=== PATIENT | male | born 1985 | race Caucasian/White ===

== ENCOUNTER 2016-11-20 14:12 | Emergency (ER) | payer OTHER ==
[2016-11-20 14:28] VITALS: BP 158/93; PULSE 131; TEMP 99.2
[2016-11-20] MEDS ORDERED: SODIUM CHLORIDE 1,000 ML IV STA (14:53)
[2016-11-20 15:35] LABS: BASOPHIL 0.5 % (0-2.0); EOSINOPHIL 0.2 % (0-4.5); MCH 30.8 pg (25.7-33.7); MCHC 34.2 g/dl (32.0-35.9); MEAN CELL VOLUME 89.8 fl (80-96); MEAN PLT VOLUME 6.6 fl (7.5-11.1); NEUTROPHILS 62.5 % (42.8-82.8); PLATELET COUNT 157 K/MM3 (134-434); RDW 12.3 % (11.9-15.9); WHITE BLOOD COUNT 5.9 K/mm3 (4.0-10.0)
[2016-11-20 16:07] LABS: ALK PHOS 95 U/L (45-117); ANION GAP 10 (8-16); BILIRUBIN,TOTAL 0.5 mg/dL (0.2-1.0); CALCIUM 8.3 mg/dL (8.5-10.1); CO2 29 mmol/L (21-32); CREATININE 0.8 mg/dL (0.7-1.3); GLUCOSE,RANDOM 135 mg/dL (74-106); SGOT/AST 25 U/L (15-37); SGPT/ALT 29 U/L (12-78)
--- NOTE | 2016-11-20 17:22 | PDOC ---
History of Present Illness - General Chief Complaint: Alcohol intoxication Stated Complaint: DETOX Time Seen by Provider: 11/20/16 14:33 History Source: Patient Exam Limitations: No Limitations - History of Present Illness Initial Comments: 11/20/16 17:17 31-year-old male presents to the ED for alcohol intoxication. As per the girlfriend The patient has been drinking heavily for the past few days and is now requesting detox. Patient states long-standing history of broccoli abuse with denies drug use. Patient states has been in detox before at [facility]. Patient has no other complaints at this time. Timing/Duration: constant Associated Symptoms: reports: denies symptoms Past History - Travel Traveled outside of the country in the last 30 days: No - Past Medical History Allergies/Adverse Reactions: Allergies Allergy/AdvReac Type Severity Reaction Status Date / Time No Known Allergies Allergy Verified 10/23/15 20:58 Home Medications: Ambulatory Orders Cetirizine HCl [Zyrtec -] 5 mg PO DAILY 08/10/14 Divalproex [Depakote -] 0 mg PO DAILY 10/23/15 Trazodone HCl 300 mg PO HS 10/23/15 Hydroxyzine Pamoate [Vistaril -] 50 mg PO DAILY #30 capsule 02/05/16 Quetiapine Fumarate "Xr" [Seroquel Xr -] 150 mg PO HS #30 tab 02/05/16 Anemia: Yes (r/t gastric bypass) Asthma: No Cancer: No Cardiac Disorders: No CVA: No COPD: No CHF: No Dementia: No Diabetes: No GI Disorders: Yes (GERD) Disorders: No HTN: No Hypercholesterolemia: No Kidney Stones: No Liver Disease: No Suicide Attempt (Hx): No Seizures: No Thyroid Disease: No - Surgical History Abdominal Surgery: Yes (gastric bypass in 05/2012) Appendectomy: No Cardiac Surgery: No Cholecystectomy: No Lung Surgery: No Neurologic Surgery: No Orthopedic Surgery: No - Reproductive History Testicular Surgery: No - Immunization History Immunization Up to Date: Yes - Psycho/Social/Smoking Cessation Hx Anxiety: No Suicidal Ideation: No Smoking History: Unknown if ever smoked Have you smoked in the past 12 months: Yes Number of Cigarettes Smoked Daily: 5 Cigars Per Day: 0 Information on smoking cessation initiated: No 'Breaking Loose' booklet given: 02/04/16 Hx Alcohol Use: Yes (unknown) Drug/Substance Use Hx: (unknown) Substance Use Type: Alcohol Hx Substance Use Treatment: Yes Patient Lives Alone: No Lives with/in: spouse/SO Review of Systems - Review of Systems Able to Perform ROS?: Yes Constitutional: No: Symptoms Reported HEENTM: No: Symptoms Reported Respiratory: No: Symptoms reported Cardiac (ROS): No: Symptoms Reported ABD/GI: No: Symptoms Reported : No: Symptoms Reported Musculoskeletal: No: Symptoms Reported Integumentary: No: Symptoms Reported Neurological: No: Symptoms reported *Physical Exam - Vital Signs Last Vital Signs Temp Pulse Resp BP Pulse Ox 99.2 F 131 H 19 158/93 96 11/20/16 14:24 11/20/16 14:24 11/20/16 14:24 11/20/16 14:24 11/20/16 14:24 - Physical Exam General Appearance: Yes: Nourished, Appropriately Dressed, Intoxicated HEENT: positive: EOMI, SHELIA, TMs Normal, Pharynx Normal. negative: Pale Conjunctivae Neck: positive: Supple Respiratory/Chest: positive: Lungs Clear, Normal Breath Sounds. negative: Respiratory Distress, Accessory Muscle Use Cardiovascular: positive: Regular Rhythm, Tachycardia. negative: Murmur Gastrointestinal/Abdominal: positive: Soft. negative: Tenderness Extremity: positive: Normal Capillary Refill. negative: Pedal Edema Integumentary: positive: Normal Color, Warm, Moist Neurologic: positive: Motor Strength 5/5 (ambulatory) ED Treatment Course - LABORATORY CBC & Chemistry Diagram: 11/20/16 15:10 11/20/16 15:10 - ADDITIONAL ORDERS Additional order review: Laboratory Results 11/20/16 11/20/16 15:10 15:10 Sodium 146 H Potassium 3.4 L Chloride 107 Carbon Dioxide 29 Anion Gap 10 BUN 10 Creatinine 0.8 D Creat Clearance w eGFR > 60 Random Glucose 135 H D Calcium 8.3 L Total Bilirubin 0.5 D AST 25 ALT 29 D Alkaline Phosphatase 95 Total Protein 7.0 Albumin 4.0 Alcohol, Quantitative 344.2 H* 11/20/16 15:10 RBC 5.25 MCV 89.8 MCHC 34.2 RDW 12.3 D MPV 6.6 L D Neutrophils % 62.5 Lymphocytes % 29.1 Monocytes % 7.7 Eosinophils % 0.2 D Basophils % 0.5 - Medications Given in the ED: ED Medications Discontinued Medications Generic Name Dose Route Start Last Admin Trade Name Heather PRN Reason Stop Dose Admin Sodium Chloride 1,000 mls @ 1,000 mls/hr 11/20/16 14:53 11/20/16 15:29 Normal Saline - IV 11/20/16 15:52 1,000 mls/hr ASDIR STA Administration Medical Decision Making - Medical Decision Making 11/20/16 16:30 Pt here for etoh intoxication. Pt requesting detox. Pt currenly intoxicated. Labs, urine, and ivf ordered 11/20/16 17:31 Laboratory Tests 11/20/16 11/20/16 11/20/16 15:10 15:10 15:10 WBC 5.9 Hgb 16.1 Hct 47.2 Plt Count 157 D Neutrophils % 62.5 Sodium 146 H Potassium 3.4 L Chloride 107 Carbon Dioxide 29 Anion Gap 10 BUN 10 Creatinine 0.8 D Creat Clearance w eGFR > 60 Random Glucose 135 H D Calcium 8.3 L Total Bilirubin 0.5 D AST 25 ALT 29 D Alkaline Phosphatase 95 Total Protein 7.0 Albumin 4.0 Alcohol, Quantitative 344.2 H* 11/20/16 17:59 As per nurse's patient was unable to be located in the ED. Patient placed as eloped *DC/Admit/Observation/Transfer Diagnosis at time of Disposition: Alcohol intoxication Qualifiers: Complication of substance-induced condition: uncomplicated Qualified Code(s): F10.920 - Alcohol use, unspecified with intoxication, uncomplicated - Discharge Dispostion Disposition: ELOPED Condition at time of disposition: Unchanged/Unknown - Patient Instructions Printed Discharge Instructions: DI for Alcohol Abuse
== END 2016-11-20 18:00 | disposition left against medical advice (07) ==
LOC: JER 14:12
PROC: 3E0337Z Introduction of Electrolytic and Water Balance Substance into Peripheral Vein, Percutaneous Approach (ICD-10-PCS; principal; 2016-11-20)
DX: F10.920 Alcohol use, unspecified with intoxication, uncomplicated (principal)
CPT/HCPCS: 80053; 80307; 85025; 99281-25

== ENCOUNTER 2016-11-20 19:26 | Inpatient (IN) | payer OTHER ==
[2016-11-20 19:46] VITALS: BMI 24.4
--- NOTE | 2016-11-20 20:01 | HP ---
CIWA Score - CIWA Score Nausea/Vomitin-Mild Nausea/No Vomiting Muscle Tremors: 4-Moderate,w/Arms Extend Anxiety: 5 Agitation: 5 Paroxysmal Sweats: 1-Minimal Palms Moist Orientation: 1-Uncertain about Date Tacttile Disturbances: 0-None Auditory Disturbances: 0-None Visual Disturbances: 0-None Headache: 1-Very Mild CIWA-Ar Total Score: 18 Admission ROS BHS - HPI Chief Complaint: withdrawal sx Allergies/Adverse Reactions: Allergies Allergy/AdvReac Type Severity Reaction Status Date / Time No Known Allergies Allergy Verified 11/20/16 19:46 History of Present Illness: 31 years old male with long history of alcohol nicotine dependence denies medical issue has bipolar ii is admitted to detox Exam Limitations: No Limitations - Ebola screening Have you traveled outside of the country in the last 21 days: No Have you had contact with anyone from an Ebola affected area: No Have you been sick,other than usual withdrawal symptoms: No Do you have a fever: No - Review of Systems Constitutional: Changes in sleep, Weight Stable EENT: reports: No Symptoms Reported Respiratory: reports: No Symptoms reported Cardiac: reports: No Symptoms Reported GI: reports: Nausea, Poor Fluid Intake, Abdominal cramping : reports: No Symptoms Reported Musculoskeletal: reports: No Symptoms Reported Integumentary: reports: No Symptoms Reported Neuro: reports: Tremors Endocrine: reports: No Symptoms Reported Hematology: reports: No Symptoms Reported Psychiatric: reports: Judgement Intact, Anxious, Depressed Other Systems: Reviewed and Negative Patient History - Patient Medical History Hx Anemia: Yes (r/t gastric bypass) Hx Asthma: No Hx Chronic Obstructive Pulmonary Disease (COPD): No Hx Cancer: No Hx Cardiac Disorders: No Hx Congestive Heart Failure: No Hx Hypertension: No Hx Hypercholesterolemia: No Hx Pacemaker: No HX Cerebrovascular Accident: No Hx Seizures: No Hx Dementia: No Hx Diabetes: No Hx Gastrointestinal Disorders: No (GERD) Hx Liver Disease: No Hx Genitourinary Disorders: No Hx Sexually Transmitted Disorders: No Hx Renal Disease (ESRD): No Hx Thyroid Disease: No Hx Human Immunodeficiency Virus (HIV): No Hx Hepatitis C: No Hx Depression: Yes Hx Suicide Attempt: No Hx Bipolar Disorder: Yes Hx Schizophrenia: No - Patient Surgical History Past Surgical History: Yes Hx Neurologic Surgery: No Hx Cataract Extraction: No Hx Cardiac Surgery: No Hx Lung Surgery: No Hx Breast Surgery: No Hx Breast Biopsy: No Hx Abdominal Surgery: Yes (gastric bypass in 05/2012) Hx Appendectomy: No Hx Cholecystectomy: No Hx Genitourinary Surgery: No Hx Orthopedic Surgery: No Other Surgical History: face lift x2 tummy tuck liopsuction in 2013 in Anesthesia Reaction: No - PPD History Previous Implant?: Yes Documented Results: Negative w/proof Implanted On Prior [facility] Admission?: Yes Date: 03/23/15 Results: 0 mm PPD to be Administered?: Yes - Smoking Cessation Smoking history: Unknown if ever smoked Have you smoked in the past 12 months: Yes Aproximately how many cigarettes per day: 5 Cigars Per Day: 0 Hx Chewing Tobacco Use: No Initiated information on smoking cessation: Yes 'Breaking Loose' booklet given: 11/20/16 - Substance & Tx. History Hx Alcohol Use: Yes Hx Substance Use: No Substance Use Type: Alcohol Hx Substance Use Treatment: Yes ([facility]) - Substances Abused Alcohol Route: Oral Frequency: Daily Amount used: pint wine Age of first use: 29 Date of Last Use: 11/20/16 Family Disease History - Family Disease History Family Disease History: Other: Father (etoh) Admission Physical Exam BHS - Vital Signs Vital Signs: Vital Signs - 24 hr 11/20/16 19:30 Temperature 97.8 F Pulse Rate 98 H Respiratory 18 Rate Blood Pressure 149/90 - Physical General Appearance: Yes: Appropriately Dressed, Moderate Distress, Alcohol on Breath, Thin, Tremorous, Irritable, Sweating, Anxious HEENTM: Yes: Hearing grossly Normal, Normal ENT Inspection, Normocephalic, Normal Voice Respiratory: Yes: Chest Non-Tender, Lungs Clear, Normal Breath Sounds, No Respiratory Distress, No Accessory Muscle Use Neck: Yes: Supple, Trachea in good position Breast: Yes: Breasts Symetrical Cardiology: Yes: Regular Rhythm, S1, S2, Tachycardia Abdominal: Yes: Non Tender, Soft Genitourinary: Yes: Within Normal Limits Back: Yes: Normal Inspection Extremities: Yes: Normal Inspection, Normal Range of Motion, Non-Tender, Tremors Neurological: Yes: Alert, Motor Strength 5/5, Normal Response, Depressed Affect Integumentary: Yes: Warm Lymphatic: Yes: Within Normal Limits - Diagnostic (1) Alcohol dependence with uncomplicated withdrawal Current Visit: Yes Status: Acute (2) GERD (gastroesophageal reflux disease) Current Visit: Yes Status: Chronic Qualifiers: Esophagitis presence: without esophagitis Qualified Code(s): K21.9 - Gastro-esophageal reflux disease without esophagitis (3) Bipolar II disorder Current Visit: Yes Status: Suspected Cleared for Admission [facility] - Detox or Rehab [facility] Level of Care: Medically Managed Detox Regimen/Protocol: Librium S Breath Alcohol Content Breath Alcohol Content: 0.266 Urine Drug Screen - Results Drug Screen Negative: No Urine Drug Screen Results: BZO-Benzodiazepines
[2016-11-20] MEDS ORDERED: MENTHOL/PHENOL 1 EACH UD MM PRN (20:03)
[2016-11-20] MEDS ORDERED: MAGNESIUM CITRATE 300 ML BOTTLE PO PRN (20:03)
[2016-11-20] MEDS ORDERED: P-EPHED 60MG/TRIPROLIDI 2.5MG TABLET PO PRN (20:03)
[2016-11-20] MEDS ORDERED: IBUPROFEN 400 MG TABLET (FP) PO PRN (20:03)
[2016-11-20] MEDS ORDERED: guaiFENesin/D-METHORPHAN HB 10 ML UNIT-DOSE CUPS PO PRN (20:03)
[2016-11-20] MEDS ORDERED: MAGNESIUM HYDROX 2400MG/30ML ORAL SUSPENSION 30 ML CUP PO PRN (20:03)
[2016-11-20] MEDS ORDERED: LOPERAMIDE HCL 2 MG CAPSULE PO PRN (20:03)
[2016-11-20] MEDS ORDERED: MAG HYDROX/AL HYDROX/SIMETH 30 ML UNIT-DOSE CUP PO PRN (20:03)
[2016-11-20] MEDS ORDERED: diphenhydrAMINE HCL 50 MG CAPSULE PO PRN (20:03)
[2016-11-20] MEDS ORDERED: NICOTINE POLACRILEX 2 MG GUM BC PRN (20:03)
[2016-11-20] MEDS ORDERED: chlordiazePOXIDE HCL 25 MG CAPSULE PO ONE (20:03)
[2016-11-20] MEDS ORDERED: ACETAMINOPHEN 325 MG TABLET (FP) PO PRN (20:03)
[2016-11-20] MEDS ORDERED: ONDANSETRON *ODT* 4 MG TABLET SL ONE (20:35)
[2016-11-20] MEDS: THIAMINE HCL 100 MG TABLET (FP) PO SCH (21:16)
[2016-11-20] MEDS: RANITIDINE HCL 150 MG TABLET (FP) PO SCH (21:16)
[2016-11-20] MEDS: chlordiazePOXIDE HCL 25 MG CAPSULE PO SCH (23:06)
[2016-11-21 00:34] LABS: URINE APPEARANCE CLEAR; URINE BILIRUBIN NEGATIVE (NEGATIVE); URINE BLOOD NEGATIVE (NEGATIVE); URINE COLOR DKYELLOW; URINE GLUCOSE (UA) NEGATIVE (NEGATIVE); URINE KETONE NEGATIVE (NEGATIVE); URINE LEUK ESTERASE NEGATIVE (NEGATIVE); URINE NITRITE NEGATIVE (NEGATIVE); URINE UROBILINOGEN 4.0 E.U/dl mg/dL (0.2-1.0)
[2016-11-21 00:48] LABS: URINE PROTEIN 1+ (NEGATIVE)
[2016-11-21 01:01] LABS: URINE HYALINE CAST 1 /lpf; URINE MUCUS MODERATE; URINE RBC <1 /hpf (0-3); URINE WBC 1 /hpf (3-5)
[2016-11-21] MEDS: chlordiazePOXIDE HCL 25 MG CAPSULE PO SCH ×4 (05:37→22:34)
[2016-11-21] MEDS: chlordiazePOXIDE HCL 25 MG CAPSULE PO PRN ×3 (09:04→20:18)
[2016-11-21] MEDS: hydrOXYzine PAMOATE 50 MG CAPSULE (FP) PO PRN (09:04)
--- NOTE | 2016-11-21 09:20 | EKG ---
Test Reason : Blood Pressure : / mmHG Vent. Rate : 085 BPM Atrial Rate : 085 BPM P-R Int : 132 ms QRS Dur : 092 ms QT Int : 360 ms P-R-T Axes : 066 063 061 degrees QTc Int : 428 ms NORMAL SINUS RHYTHM VOLTAGE CRITERIA FOR LEFT VENTRICULAR HYPERTROPHY ABNORMAL ECG NO PREVIOUS ECGS AVAILABLE Confirmed by DINESH BOGGS MD ([id number]) on 11/21/2016 9:20:21 AM Referred By: Confirmed By:DINESH BOGGS MD
[2016-11-21] MEDS: NICOTINE 14 MG/24 HOURS TOPICAL PATCH TD SCH (10:05)
[2016-11-21] MEDS: PRENATAL VITAMINS W/ FOLIC ACID TABLET (FP) PO SCH (10:05)
[2016-11-21] MEDS: RANITIDINE HCL 150 MG TABLET (FP) PO SCH ×2 (10:05→22:34)
--- NOTE | 2016-11-21 10:39 | CONSULT ---
[facility] Psychiatric Consult - Data Date of interview: 11/21/16 Admission source: [facility] Identifying data: This is one of several admissions to [facility] for this 31 y/ o male seeking detox treatment on for alcohol dependence.Patient is single without children,domiciled,unemployed and supported on food stamps. Substance Abuse History: Confirmed by patent. Smoking Cessation. Smoking history: Unknown if ever smoked. Have you smoked in the past 12 months: Yes. Aproximately how many cigarettes per day: 5. Cigars Per Day: 0. Hx Chewing Tobacco Use: No. Initiated information on smoking cessation: Yes. 'Breaking Loose' booklet given: 11/20/16. - Substance & Tx. History. Hx Alcohol Use: Yes. Hx Substance Use: No. Substance Use Type: Alcohol. Hx Substance Use Treatment: Yes (2015). - Substances Abused. Alcohol. Route: Oral. Frequency: Daily. Amount used: pint wine. Age of first use: 29. Date of Last Use: 11/20/16 Medical History: Remarkable for a history of gastric bypass (2012),anemia,GERD, face lift X 2 and tummy tuck liposuction in 2013 (in the [place]). Psychiatric History: Patient denies history of psychiatric hospitalizations.Diagnosed with Bipolar Disorder.Still managed by private psychiatrist,Dr Cline in the [place].Mr Saucedo is treated with seroquel 200 mg /hs (self-report).He denies history of suicide attempts. Physical/Sexual Abuse/Trauma History: Patient denies. Mental Status Exam - Mental Status Exam Alert and Oriented to: Time, Place, Person Cognitive Function: Good Patient Appearance: Well Groomed Mood: Withdrawn, Hopeful Affect: Mood Congruent Patient Behavior: Fatigued, Appropriate, Cooperative Speech Pattern: Clear, Appropriate (nicaraguan-speaking) Voice Loudness: Normal Thought Process: Goal Oriented Thought Disorder: Not Present Hallucinations: Denies Suicidal Ideation: Denies Homicidal Ideation: Denies Insight/Judgement: Poor Sleep: Poorly, Difficulty falling asleep Appetite: Good Muscle strength/Tone: Normal Gait/Station: Normal Psychiatric Findings - Problem List ([place] 1, 2,3) (1) Alcohol dependence with uncomplicated withdrawal Current Visit: Yes Status: Acute (2) Nicotine dependence Current Visit: Yes Status: Acute Qualifiers: Nicotine product type: cigarettes Substance use status: uncomplicated Qualified Code(s): F17.210 - Nicotine dependence, cigarettes, uncomplicated (3) Substance induced mood disorder Current Visit: Yes Status: Acute (4) Bipolar disorder Current Visit: Yes Status: Chronic Qualifiers: Active/Remission status: in partial remission Most recent bipolar episode type: mixed Qualified Code(s): F31.77 - Bipolar disorder, in partial remission, most recent episode mixed Comment: Historical diagnosis. (5) GERD (gastroesophageal reflux disease) Current Visit: Yes Status: Chronic Qualifiers: Esophagitis presence: without esophagitis Qualified Code(s): K21.9 - Gastro-esophageal reflux disease without esophagitis (6) History of gastric bypass Current Visit: Yes Status: Chronic (7) Insomnia Current Visit: Yes Status: Acute - Initial Treatment Plan Initial Treatment Plan: Psychoeducation.Detoxification.Past records are reviewed.Seroquel 100 mg po hs.Side effects/benefits discussed with the patient.He agrees with this careplan.Observation.Pharmacy claims are reviewed.No evidence of refills from Dr Cline since 12/03/15 (seroquel XR 150 mg/hs.No trace of valproate).Mr Saucedo is NOT reliable.Will follow.
--- NOTE | 2016-11-21 11:08 | PN ---
[facility] CIWA - CIWA Score Nausea/Vomitin-No Nausea/No Vomiting Muscle Tremors: 4-Moderate,w/Arms Extend Anxiety: 4-Mod. Anxious/Guarded Agitation: 4-Moderately Restless Paroxysmal Sweats: 1-Minimal Palms Moist Orientation: 0-Oriented Tacttile Disturbances: 3-Moderate Itch/Numb/Burn Auditory Disturbances: 0-None Visual Disturbances: 0-None Headache: 0-None Present CIWA-Ar Total Score: 16 S Progress Note (SOAP) Subjective: ANXIETY,SWEATS,HOT/COLD CHILLS,"FEELING SKIN CRAWLS", RESTLESS,LOW GRADE FEVER, MOIST COUGH, NO SOB. Objective: 11/21/16 11:06 Vital Signs Temperature 99 F 11/21/16 09:50 Pulse Rate 103 H 11/21/16 09:50 Respiratory Rate 20 11/21/16 09:50 Blood Pressure 151/99 11/21/16 09:50 O2 Sat by Pulse Oximetry (%) Laboratory Last Values Urine Color Dkyellow 11/21/16 00:01 Urine Appearance Clear 11/21/16 00:01 Urine pH 6.0 (5.0-8.0) 11/21/16 00:01 Ur Specific [place] 1.025 (1.005-1.025) 11/21/16 00:01 Urine Protein 1+ (NEGATIVE) H 11/21/16 00:01 Urine Glucose (UA) Negative (NEGATIVE) 11/21/16 00:01 Urine Ketones Negative (NEGATIVE) 11/21/16 00:01 Urine Blood Negative (NEGATIVE) 11/21/16 00:01 Urine Nitrite Negative (NEGATIVE) 11/21/16 00:01 Urine Bilirubin Negative (NEGATIVE) 11/21/16 00:01 Urine Urobilinogen 4.0 e.u/dl mg/dL (0.2-1.0) 11/21/16 00:01 Ur Leukocyte Esterase Negative (NEGATIVE) 11/21/16 00:01 Urine RBC <1 /hpf (0-3) 11/21/16 00:01 Urine WBC 1 /hpf (3-5) 11/21/16 00:01 Hyaline Casts 1 /lpf 11/21/16 00:01 Urine Mucus Moderate 11/21/16 00:01 OTHER LABS PENDING LUNGS: CTA/P Assessment: 09/01/17 11:06 WITHDRAWAL SX Plan: CONTINUE DETOX CXR R/O PATHOLOGY
[2016-11-21] MEDS: THIAMINE HCL 100 MG TABLET (FP) PO SCH (22:34)
[2016-11-21] MEDS: QUEtiapine FUMARATE 100 MG TABLET (FP) PO SCH (22:34)
[2016-11-22] MEDS: chlordiazePOXIDE HCL 25 MG CAPSULE PO SCH ×3 (05:35→17:30)
[2016-11-22] MEDS: PRENATAL VITAMINS W/ FOLIC ACID TABLET (FP) PO SCH (10:34)
[2016-11-22] MEDS: NICOTINE 14 MG/24 HOURS TOPICAL PATCH TD SCH (10:34)
[2016-11-22] MEDS: RANITIDINE HCL 150 MG TABLET (FP) PO SCH ×2 (10:34→22:46)
[2016-11-22] MEDS ORDERED: cloNIDine HCL 0.1 MG TABLET PO ONE (13:00)
--- NOTE | 2016-11-22 20:13 | PN ---
[facility] CIWA - CIWA Score Nausea/Vomitin-No Nausea/No Vomiting Muscle Tremors: 3 Anxiety: 5 Agitation: 3 Paroxysmal Sweats: 3 Orientation: 2-Disoriented Date<2 days Tacttile Disturbances: 3-Moderate Itch/Numb/Burn Auditory Disturbances: 0-None Visual Disturbances: 0-None Headache: 0-None Present CIWA-Ar Total Score: 19 BHS Progress Note (SOAP) Subjective: Anxious, Sweating, Interrupted Sleep, Body Aches, Tremors. Objective: PT. A & O X 2 (DISORIENTED ABOUT DAY / DATE). PT. OBSERVED AMBULATING ON UNIT. NO ACUTE DISTRESS. 11/22/16 20:10 Vital Signs Temperature 97.7 F 11/22/16 17:50 Pulse Rate 101 H 11/22/16 17:50 Respiratory Rate 16 11/22/16 17:50 Blood Pressure 107/67 11/22/16 17:50 O2 Sat by Pulse Oximetry (%) Laboratory Tests 11/21/16 11/21/16 11/21/16 00:01 07:00 07:00 Urine Color Dkyellow Urine Appearance Clear Urine pH 6.0 Ur Specific [place] 1.025 Urine Protein 1+ H Urine Glucose (UA) Negative Urine Ketones Negative Urine Blood Negative Urine Nitrite Negative Urine Bilirubin Negative Urine Urobilinogen 4.0 e.u/dl Ur Leukocyte Esterase Negative Urine RBC <1 Urine WBC 1 Hyaline Casts 1 Urine Mucus Moderate Valproic Acid < 3.000 L RPR Titer Nonreactive LABS NOTED. 11/22/16 20:17 Assessment: 11/22/16 20:11 WITHDRAWAL SYMPTOMS. Plan: CONTINUE DETOX. PRN FLEXERIL FOR BODY ACHES / MUSCLE SPASMS. CLONIDINE, 0.1 MG PO FOR DETOX / WITHDRAWAL SYMPTOMS. ORDER CBC, CMP.
[2016-11-22] MEDS: chlordiazePOXIDE 5 MG CAPSULE PO SCH (22:45)
[2016-11-22] MEDS: THIAMINE HCL 100 MG TABLET (FP) PO SCH (22:45)
[2016-11-22] MEDS: QUEtiapine FUMARATE 100 MG TABLET (FP) PO SCH (22:46)
[2016-11-23] MEDS: CYCLOBENZAPRINE HCL 10 MG TABLET (FP) PO PRN ×3 (05:53→22:16)
[2016-11-23] MEDS: chlordiazePOXIDE 5 MG CAPSULE PO SCH ×3 (05:53→17:32)
[2016-11-23] MEDS: hydrOXYzine PAMOATE 50 MG CAPSULE (FP) PO PRN (05:56)
[2016-11-23] MEDS: PRENATAL VITAMINS W/ FOLIC ACID TABLET (FP) PO SCH (10:16)
[2016-11-23] MEDS: NICOTINE 14 MG/24 HOURS TOPICAL PATCH TD SCH (10:16)
[2016-11-23] MEDS: RANITIDINE HCL 150 MG TABLET (FP) PO SCH ×2 (10:16→22:15)
[2016-11-23 10:32] LABS: BASOPHIL 0.4 % (0-2.0); EOSINOPHIL 0.7 % (0-4.5); MCH 32.3 pg (25.7-33.7); MCHC 34.5 g/dl (32.0-35.9); MEAN CELL VOLUME 93.4 fl (80-96); MEAN PLT VOLUME 7.6 fl (7.5-11.1); NEUTROPHILS 61.5 % (42.8-82.8); PLATELET COUNT 103 K/MM3 (134-434); RDW 12.3 % (11.9-15.9); WHITE BLOOD COUNT 4.5 K/mm3 (4.0-10.0)
[2016-11-23 10:49] LABS: ALBUMIN 3.4 g/dl (3.4-5.0); ANION GAP 8 (8-16); CALCIUM 8.5 mg/dL (8.5-10.1); CO2 31 mmol/L (21-32); GLUCOSE,RANDOM 95 mg/dL (74-106)
[2016-11-23 10:52] LABS: ALK PHOS 85 U/L (45-117); BILIRUBIN,TOTAL 1.2 mg/dL (0.2-1.0); CREATININE 0.7 mg/dL (0.7-1.3); SGOT/AST 18 U/L (15-37); SGPT/ALT 23 U/L (12-78); TOT PROT 6.1 g/dl (6.4-8.2)
--- NOTE | 2016-11-23 16:11 | PN ---
BHS Progress Note (SOAP) Subjective: Anxious, H/A, Body aches, Tremors. Objective: PT. A & O X 3, OBSERVED AMBULATING ON UNIT. NO ACUTE DISTRESS. 11/23/16 16:10 Vital Signs Temperature 98.1 F 11/23/16 10:41 Pulse Rate 124 H 11/23/16 10:41 Respiratory Rate 20 11/23/16 10:41 Blood Pressure 112/79 11/23/16 10:41 O2 Sat by Pulse Oximetry (%) Laboratory Tests 11/21/16 11/21/16 11/21/16 00:01 07:00 07:00 WBC RBC Hgb Hct MCV MCH MCHC RDW Plt Count MPV Neutrophils % Lymphocytes % Monocytes % Eosinophils % Basophils % Sodium Potassium Chloride Carbon Dioxide Anion Gap BUN Creatinine Creat Clearance w eGFR Random Glucose Calcium Total Bilirubin AST ALT Alkaline Phosphatase Total Protein Albumin Urine Color Dkyellow Urine Appearance Clear Urine pH 6.0 Ur Specific [place] 1.025 Urine Protein 1+ H Urine Glucose (UA) Negative Urine Ketones Negative Urine Blood Negative Urine Nitrite Negative Urine Bilirubin Negative Urine Urobilinogen 4.0 e.u/dl Ur Leukocyte Esterase Negative Urine RBC <1 Urine WBC 1 Hyaline Casts 1 Urine Mucus Moderate Valproic Acid < 3.000 L RPR Titer Nonreactive 11/23/16 11/23/16 07:00 07:00 WBC 4.5 RBC 4.37 Hgb 14.1 D Hct 40.8 MCV 93.4 MCH 32.3 MCHC 34.5 RDW 12.3 Plt Count 103 L D MPV 7.6 D Neutrophils % 61.5 Lymphocytes % 29.9 Monocytes % 7.5 Eosinophils % 0.7 D Basophils % 0.4 Sodium 144 Potassium 3.5 Chloride 105 Carbon Dioxide 31 Anion Gap 8 BUN 11 Creatinine 0.7 Creat Clearance w eGFR > 60 Random Glucose 95 D Calcium 8.5 Total Bilirubin 1.2 H D AST 18 D ALT 23 D Alkaline Phosphatase 85 Total Protein 6.1 L Albumin 3.4 Urine Color Urine Appearance Urine pH Ur Specific [place] Urine Protein Urine Glucose (UA) Urine Ketones Urine Blood Urine Nitrite Urine Bilirubin Urine Urobilinogen Ur Leukocyte Esterase Urine RBC Urine WBC Hyaline Casts Urine Mucus Valproic Acid RPR Titer labs noted. Assessment: 11/23/16 16:10 WITHDRAWAL SYMPTOMS. Plan: CONTINUE DETOX. PRN FLEXERIL FOR BODY ACHES / MUSCLE SPASMS.
[2016-11-23] MEDS: chlordiazePOXIDE HCL 10 MG CAPSULE PO SCH (22:14)
[2016-11-23] MEDS: THIAMINE HCL 100 MG TABLET (FP) PO SCH (22:14)
[2016-11-23] MEDS: QUEtiapine FUMARATE 100 MG TABLET (FP) PO SCH (22:15)
[2016-11-23 22:23] VITALS: PULSE 112
[2016-11-24] MEDS: chlordiazePOXIDE HCL 10 MG CAPSULE PO SCH (06:02)
[2016-11-24 06:24] VITALS: BP 98/68; TEMP 97.1
--- NOTE | 2016-11-24 18:09 | DS ---
[facility] Detox Discharge Summary Admission Date: 11/20/16 Discharge Date: 11/24/16 - History Present History: Alcohol Dependence Additional Comments: PATIENT GOING TO [facility] FOR AFTERCARE. PATIENT WAS DISCHARGED FROM UNIT IN STABLE MEDICAL CONDITION. Pertinent Past History: History of Anemia, History of Gastric Bypass, Depression, GERD. - Physical Exam Results Vital Signs: Vital Signs Temperature 97.1 F L 11/24/16 06:24 Pulse Rate 112 H 11/24/16 06:24 Respiratory Rate 16 11/24/16 06:24 Blood Pressure 98/68 11/24/16 06:24 O2 Sat by Pulse Oximetry (%) Pertinent Admission Physical Exam Findings: WITHDRAWAL SYMPTOMS. Laboratory Tests 11/21/16 11/21/16 11/21/16 00:01 07:00 07:00 WBC RBC Hgb Hct MCV MCH MCHC RDW Plt Count MPV Neutrophils % Lymphocytes % Monocytes % Eosinophils % Basophils % Sodium Potassium Chloride Carbon Dioxide Anion Gap BUN Creatinine Creat Clearance w eGFR Random Glucose Calcium Total Bilirubin AST ALT Alkaline Phosphatase Total Protein Albumin Urine Color Dkyellow Urine Appearance Clear Urine pH 6.0 Ur Specific [place] 1.025 Urine Protein 1+ H Urine Glucose (UA) Negative Urine Ketones Negative Urine Blood Negative Urine Nitrite Negative Urine Bilirubin Negative Urine Urobilinogen 4.0 e.u/dl Ur Leukocyte Esterase Negative Urine RBC <1 Urine WBC 1 Hyaline Casts 1 Urine Mucus Moderate Valproic Acid < 3.000 L RPR Titer Nonreactive 11/23/16 11/23/16 07:00 07:00 WBC 4.5 RBC 4.37 Hgb 14.1 D Hct 40.8 MCV 93.4 MCH 32.3 MCHC 34.5 RDW 12.3 Plt Count 103 L D MPV 7.6 D Neutrophils % 61.5 Lymphocytes % 29.9 Monocytes % 7.5 Eosinophils % 0.7 D Basophils % 0.4 Sodium 144 Potassium 3.5 Chloride 105 Carbon Dioxide 31 Anion Gap 8 BUN 11 Creatinine 0.7 Creat Clearance w eGFR > 60 Random Glucose 95 D Calcium 8.5 Total Bilirubin 1.2 H D AST 18 D ALT 23 D Alkaline Phosphatase 85 Total Protein 6.1 L Albumin 3.4 Urine Color Urine Appearance Urine pH Ur Specific [place] Urine Protein Urine Glucose (UA) Urine Ketones Urine Blood Urine Nitrite Urine Bilirubin Urine Urobilinogen Ur Leukocyte Esterase Urine RBC Urine WBC Hyaline Casts Urine Mucus Valproic Acid RPR Titer LABS NOTED. - Treatment Hospital Course: Detox Protocol Followed, Detoxed Safely, Responded well, Discharged Condition Good, Rehab Referral Accepted Patient has Accepted a Rehab Referral to: [facility]. - Medication Discharge Medications: Ambulatory Orders Cetirizine HCl [Zyrtec -] 5 mg PO DAILY 08/10/14 Divalproex [Depakote -] 0 mg PO DAILY 10/23/15 Trazodone HCl 300 mg PO HS 10/23/15 Quetiapine Fumarate "Xr" [Seroquel Xr -] 150 mg PO HS #30 tab 02/05/16 Quetiapine Fumarate [Seroquel -] 200 mg PO HS #30 tab 11/21/16 - Diagnosis (1) Alcohol dependence with uncomplicated withdrawal Status: Acute (2) Nicotine dependence Status: Chronic Qualifiers: Nicotine product type: cigarettes Substance use status: uncomplicated Qualified Code(s): F17.210 - Nicotine dependence, cigarettes, uncomplicated (3) Substance induced mood disorder Status: Acute (4) Bipolar disorder Status: Chronic Qualifiers: Active/Remission status: in partial remission Most recent bipolar episode type: mixed Qualified Code(s): F31.77 - Bipolar disorder, in partial remission, most recent episode mixed (5) GERD (gastroesophageal reflux disease) Status: Chronic Qualifiers: Esophagitis presence: without esophagitis Qualified Code(s): K21.9 - Gastro-esophageal reflux disease without esophagitis (6) History of gastric bypass Status: Chronic (7) Insomnia Status: Acute Qualifiers: Insomnia type: unspecified Qualified Code(s): G47.00 - Insomnia, unspecified - AMA Did Patient Leave Against Medical Advice: No
== END 2016-11-24 09:28 | disposition home or self-care (01) | DRG 775 ==
LOC: YASAS 19:26 → Y3N 19:51
PROVIDERS: ADMIT Internal Medicine Addiction Medicine; ATTEND Internal Medicine Addiction Medicine
PROC: HZ2ZZZZ Detoxification Services for Substance Abuse Treatment (ICD-10-PCS; principal; 2016-11-20)
DX: F10.230 Alcohol dependence with withdrawal, uncomplicated (principal); F17.210 Nicotine dependence, cigarettes, uncomplicated; F19.24 Other psychoactive substance dependence with psychoactive substance-induced mood disorder; F31.77 Bipolar disorder, in partial remission, most recent episode mixed; K21.9 Gastro-esophageal reflux disease without esophagitis; G47.00 Insomnia, unspecified; Z98.84 Bariatric surgery status; Z86.2 Personal history of diseases of the blood and blood-forming organs and certain disorders involving the immune mechanism
CPT/HCPCS: 36415; 71020-TC; 80053; 80164; 81003; 81015; 85025; 86593; 93005; 93010

== ENCOUNTER 2017-02-22 17:08 | Inpatient (IN) | payer SELFPAY ==
[2017-02-22 18:59] VITALS: BMI 25.0
--- NOTE | 2017-02-22 20:21 | HP ---
CIWA Score - CIWA Score Nausea/Vomitin-Mild Nausea/No Vomiting Muscle Tremors: 4-Moderate,w/Arms Extend Anxiety: 4-Mod. Anxious/Guarded Agitation: 4-Moderately Restless Paroxysmal Sweats: 3 Orientation: 1-Uncertain about Date Tacttile Disturbances: 3-Moderate Itch/Numb/Burn Auditory Disturbances: 0-None Visual Disturbances: 0-None Headache: 3-Moderate CIWA-Ar Total Score: 23 Admission ROS BHS - HPI Chief Complaint: C/O WITHDRAWAL SX'S. SEEKING DETOX TXMENT Allergies/Adverse Reactions: Allergies Allergy/AdvReac Type Severity Reaction Status Date / Time No Known Allergies Allergy Verified 02/22/17 20:15 History of Present Illness: 31 Y.O. MALE WITH HX/O ALCOHOLISM HERE FOR DETOX TXMENT. CLIENT IS KNOWN TO THIS PROGRAM LAST HERE 11/2016. HAS DENIES ANY DETOX TXMENT SINCE. HE IS SELF REFERRED. REPORTS LONGEST CLEAN TIME 3 YEARS. CLIENT IS A POOR HISTORIAN DUE TO INTOXICATION. Exam Limitations: Intoxication - Ebola screening Have you traveled outside of the country in the last 21 days: No (N) Have you had contact with anyone from an Ebola affected area: No Have you been sick,other than usual withdrawal symptoms: No Do you have a fever: No - Review of Systems Constitutional: Loss of Appetite, Changes in sleep EENT: reports: No Symptoms Reported Respiratory: reports: Shortness of Breath Cardiac: reports: No Symptoms Reported GI: reports: Nausea, Poor Appetite, Other (HICCUPS) : reports: No Symptoms Reported Musculoskeletal: reports: No Symptoms Reported Integumentary: reports: No Symptoms Reported Endocrine: reports: No Symptoms Reported Hematology: reports: No Symptoms Reported Psychiatric: reports: Anxious, Depressed Other Systems: Reviewed and Negative Patient History - Patient Medical History Hx Anemia: Yes (r/t gastric bypass) Hx Asthma: No Hx Chronic Obstructive Pulmonary Disease (COPD): No Hx Cancer: No Hx Cardiac Disorders: No Hx Congestive Heart Failure: No Hx Hypertension: No Hx Hypercholesterolemia: No Hx Pacemaker: No HX Cerebrovascular Accident: No Hx Seizures: No Hx Dementia: No Hx Diabetes: No Hx Gastrointestinal Disorders: No (GERD) Hx Liver Disease: No Hx Genitourinary Disorders: No Hx Sexually Transmitted Disorders: No Hx Renal Disease (ESRD): No Hx Thyroid Disease: No Hx Human Immunodeficiency Virus (HIV): No Hx Hepatitis C: No Hx Depression: Yes Hx Suicide Attempt: No Hx Bipolar Disorder: Yes Hx Schizophrenia: No Other Medical History: DENIES - Patient Surgical History Past Surgical History: Yes Hx Neurologic Surgery: No Hx Cataract Extraction: No Hx Cardiac Surgery: No Hx Lung Surgery: No Hx Breast Surgery: No Hx Breast Biopsy: No Hx Abdominal Surgery: Yes (gastric bypass in 05/2012) Hx Appendectomy: No Hx Cholecystectomy: No Hx Genitourinary Surgery: No Hx Section: No Hx Orthopedic Surgery: No Other Surgical History: face lift x2 tummy tuck liopsuction in 2013 in Anesthesia Reaction: No - PPD History Previous Implant?: Yes Documented Results: Negative w/proof Implanted On Prior [facility] Admission?: Yes Date: 11/22/16 Results: 0 mm PPD to be Administered?: No - Smoking Cessation Smoking history: Unknown if ever smoked Have you smoked in the past 12 months: Yes Aproximately how many cigarettes per day: 5 Cigars Per Day: 0 Hx Chewing Tobacco Use: No Initiated information on smoking cessation: Yes 'Breaking Loose' booklet given: 02/22/17 - Substance & Tx. History Hx Alcohol Use: Yes Hx Substance Use: Yes Substance Use Type: Alcohol Hx Substance Use Treatment: Yes ([facility]) - Substances Abused WHISKEY Route: Oral Frequency: Daily Amount used: 1/2 PINT Age of first use: 29 Date of Last Use: 02/22/17 Family Disease History - Family Disease History Family Disease History: Other: Father (etoh) Admission Physical Exam BHS - Vital Signs Vital Signs: Vital Signs - 24 hr 02/22/17 18:57 Temperature 98.8 F Pulse Rate 90 Respiratory 18 Rate Blood Pressure 140/96 - Physical General Appearance: Yes: Appropriately Dressed, Mild Distress, Alcohol on Breath , Intoxicated, Tremorous, Anxious HEENTM: Yes: EOMI, Normocephalic, SHELIA, Pharynx Normal Respiratory: Yes: Chest Non-Tender, Lungs Clear, Normal Breath Sounds, No Respiratory Distress, No Accessory Muscle Use Neck: Yes: No masses,lesions,Nodules, Supple, Trachea in good position Breast: Yes: Breast Exam Deferred Cardiology: Yes: Regular Rhythm, S1, S2, Tachycardia Abdominal: Yes: Normal Bowel Sounds, Non Tender, Flat, Surgical Scar Genitourinary: Yes: Within Normal Limits Back: Yes: Normal Inspection Musculoskeletal: Yes: full range of Motion, Other (UNSTEADY GAIT) Extremities: Yes: Normal Capillary Refill, Normal Range of Motion, Non-Tender, Tremors Neurological: Yes: Alert, Motor Strength 5/5, Disoriented Integumentary: Yes: Normal Color, Dry, Warm, Other (STRETCH CAIN; SAGGING SKIN FROM WEIGHT LOSS) Lymphatic: Yes: Within Normal Limits - Diagnostic (1) Alcohol dependence with uncomplicated withdrawal Current Visit: No Status: Chronic (2) GERD (gastroesophageal reflux disease) Current Visit: No Status: Chronic Qualifiers: Esophagitis presence: without esophagitis Qualified Code(s): K21.9 - Gastro -esophageal reflux disease without esophagitis (3) Nicotine dependence Current Visit: No Status: Chronic Qualifiers: Nicotine product type: cigarettes Substance use status: uncomplicated Qualified Code(s): F17.210 - Nicotine dependence, cigarettes, uncomplicated Cleared for Admission [facility] - Detox or Rehab [facility] Level of Care: Medically Managed Detox Regimen/Protocol: Librium S Breath Alcohol Content Breath Alcohol Content: 0.390 Urine Drug Screen - Results Drug Screen Negative: Yes
[2017-02-22] MEDS ORDERED: MAGNESIUM CITRATE 300 ML BOTTLE PO PRN (20:32)
[2017-02-22] MEDS ORDERED: chlordiazePOXIDE HCL 25 MG CAPSULE PO ONE (20:32)
[2017-02-22] MEDS ORDERED: MENTHOL/PHENOL 1 EACH UD MM PRN (20:32)
[2017-02-22] MEDS ORDERED: MAG HYDROX/AL HYDROX/SIMETH 30 ML UNIT-DOSE CUP PO PRN (20:32)
[2017-02-22] MEDS ORDERED: chlordiazePOXIDE HCL 25 MG CAPSULE PO PRN (20:32)
[2017-02-22] MEDS ORDERED: guaiFENesin/D-METHORPHAN HB 10 ML UNIT-DOSE CUPS PO PRN (20:32)
[2017-02-22] MEDS ORDERED: LOPERAMIDE HCL 2 MG CAPSULE PO PRN (20:32)
[2017-02-22] MEDS ORDERED: IBUPROFEN 400 MG TABLET (FP) PO PRN (20:32)
[2017-02-22] MEDS ORDERED: ACETAMINOPHEN 325 MG TABLET (FP) PO PRN (20:32)
[2017-02-22] MEDS ORDERED: P-EPHED 60MG/TRIPROLIDI 2.5MG TABLET PO PRN (20:32)
[2017-02-22] MEDS ORDERED: NICOTINE POLACRILEX 2 MG GUM BUC PRN (20:32)
[2017-02-22] MEDS ORDERED: hydrOXYzine PAMOATE 50 MG CAPSULE (FP) PO PRN (20:32)
[2017-02-22] MEDS ORDERED: MAGNESIUM HYDROX 2400MG/30ML ORAL SUSPENSION 30 ML CUP PO PRN (20:32)
[2017-02-22] MEDS ORDERED: ONDANSETRON *ODT* 4 MG TABLET SL PRN (20:36)
[2017-02-22] MEDS: PANTOPRAZOLE 20 MG TABLET (FP) PO SCH (21:05)
[2017-02-22] MEDS: chlordiazePOXIDE HCL 25 MG CAPSULE PO SCH (22:14)
[2017-02-22] MEDS: THIAMINE HCL 100 MG TABLET (FP) PO SCH (22:15)
[2017-02-22 22:57] LABS: URINE APPEARANCE CLEAR; URINE BILIRUBIN NEGATIVE (NEGATIVE); URINE BLOOD NEGATIVE (NEGATIVE); URINE COLOR YELLOW; URINE GLUCOSE (UA) NEGATIVE (NEGATIVE); URINE KETONE NEGATIVE (NEGATIVE); URINE NITRITE NEGATIVE (NEGATIVE); URINE UROBILINOGEN 4.0 E.U/dl mg/dL (0.2-1.0)
[2017-02-22 23:07] LABS: URINE PROTEIN 1+ (NEGATIVE)
[2017-02-22 23:11] LABS: URINE BACTERIA RARE /hpf (NONE SEEN); URINE HYALINE CAST 1 /lpf; URINE MUCUS RARE; URINE RBC <1 /hpf (0-3); URINE WBC 2 /hpf (3-5)
[2017-02-23] MEDS: chlordiazePOXIDE HCL 25 MG CAPSULE PO SCH ×4 (05:55→22:33)
--- NOTE | 2017-02-23 07:46 | CONSULT ---
[facility] Psychiatric Consult - Data Date of interview: 02/23/17 Admission source: [facility] Identifying data: This is 31 yearsv old male with no psychiatric hospitalization history intoxiocated with: Alcohol and Nicotine Substance Abuse History: - Smoking Cessation. Smoking history: Unknown if ever smoked. Have you smoked in the past 12 months: Yes. Aproximately how many cigarettes per day: 5. Cigars Per Day: 0. Hx Chewing Tobacco Use: No. Initiated information on smoking cessation: Yes. 'Breaking Loose' booklet given : 02/22/17. - Substance & Tx. History. Hx Alcohol Use: Yes. Hx Substance Use : Yes. Substance Use Type: Alcohol. Hx Substance Use Treatment: Yes ([facility]). - Substances Abused. WHISKEY. Route: Oral. Frequency: Daily. Amount used : 1/2 PINT. Age of first use: 29. Date of Last Use: 02/22/17 Medical History: GERD Psychiatric History: Patoenmt reports bhistory of depression and Anxiety, insomnia as well, reports taking prior to admission: Seroquel 100mg po qhs Physical/Sexual Abuse/Trauma History: Denies Additional Comment: Lexapro 20mg poqd Mental Status Exam - Mental Status Exam Alert and Oriented to: Person Cognitive Function: Fair Patient Appearance: Unkempt Mood: Sad Affect: Flat Patient Behavior: Sedated Speech Pattern: Delayed Voice Loudness: Mildly Soft/Quiet Thought Process: Circumstantial Thought Disorder: Being Controlled Hallucinations: Denies Suicidal Ideation: Denies Homicidal Ideation: Denies Insight/Judgement: Fair Sleep: Difficulty falling asleep Appetite: Fair Muscle strength/Tone: Mild Hypotonicity Gait/Station: Shuffling Additional Comments: Lexapro 20mg poqd Psychiatric Findings - Problem List ([place] 1, 2,3) (1) Alcohol intoxication Current Visit: No Status: Acute Qualifiers: Complication of substance-induced condition: uncomplicated Qualified Code(s ): F10.920 - Alcohol use, unspecified with intoxication, uncomplicated (2) Substance induced mood disorder Current Visit: No Status: Acute (3) Alcohol dependence Current Visit: No Status: Chronic Qualifiers: Substance use status: unspecified alcohol-induced disorder Qualified Code(s ): F10.29 - Alcohol dependence with unspecified alcohol-induced disorder (4) Alcohol dependence with uncomplicated withdrawal Current Visit: No Status: Chronic (5) Alcohol-induced anxiety disorder Current Visit: No Status: Chronic (6) Anxiety Current Visit: No Status: Chronic (7) Bipolar disorder Current Visit: No Status: Chronic Qualifiers: Active/Remission status: in partial remission Most recent bipolar episode type: mixed Qualified Code(s): F31.77 - Bipolar disorder, in partial remission , most recent episode mixed Comment: Historical diagnosis. (8) Drug-induced mood disorder Current Visit: No Status: Chronic (9) Nicotine dependence Current Visit: No Status: Chronic Qualifiers: Nicotine product type: cigarettes Substance use status: uncomplicated Qualified Code(s): F17.210 - Nicotine dependence, cigarettes, uncomplicated (10) Bipolar II disorder Current Visit: No Status: Suspected - Initial Treatment Plan Initial Treatment Plan: Lexapro 20mg poqd
[2017-02-23 10:05] LABS: MCH 29.8 pg (25.7-33.7); MCHC 34.3 g/dl (32.0-35.9); MEAN PLT VOLUME 7.1 fl (7.5-11.1); PLATELET COUNT 120 K/MM3 (134-434); RDW 12.1 % (11.9-15.9); WHITE BLOOD COUNT 5.8 K/mm3 (4.0-10.0)
[2017-02-23 10:20] LABS: ALBUMIN 3.7 g/dl (3.4-5.0); ANION GAP 9 (8-16); CALCIUM 7.8 mg/dL (8.5-10.1); CO2 28 mmol/L (21-32); CREATININE 0.7 mg/dL (0.7-1.3); GLUCOSE,RANDOM 83 mg/dL (74-106); SGOT/AST 24 U/L (15-37); SGPT/ALT 21 U/L (12-78); TOT PROT 6.7 g/dl (6.4-8.2)
[2017-02-23 10:21] LABS: ALK PHOS 81 U/L (45-117)
[2017-02-23] MEDS: PANTOPRAZOLE 20 MG TABLET (FP) PO SCH (10:36)
[2017-02-23] MEDS: PRENATAL VITAMINS W/ FOLIC ACID TABLET (FP) PO SCH (10:36)
[2017-02-23] MEDS: NICOTINE 14 MG/24 HOURS TOPICAL PATCH TD SCH (10:37)
[2017-02-23] MEDS: cloNIDine HCL 0.1 MG TABLET PO PRN ×3 (10:41→22:56)
[2017-02-23 10:55] LABS: URINE LEUK ESTERASE Negative (NEGATIVE)
--- NOTE | 2017-02-23 11:51 | PN ---
S CIWA - CIWA Score Nausea/Vomitin-No Nausea/No Vomiting Muscle Tremors: 4-Moderate,w/Arms Extend Anxiety: 3 Agitation: 3 Paroxysmal Sweats: 3 Orientation: 0-Oriented Tacttile Disturbances: 0-None Auditory Disturbances: 0-None Visual Disturbances: 0-None Headache: 1-Very Mild CIWA-Ar Total Score: 14 S Progress Note (SOAP) Subjective: shakes sweats irritable agitation restless body aches interrupted sleep Objective: 02/23/17 11:50 Vital Signs Temperature 99.1 F 02/23/17 09:34 Pulse Rate 112 H 02/23/17 09:34 Respiratory Rate 18 02/23/17 09:34 Blood Pressure 152/100 02/23/17 09:34 O2 Sat by Pulse Oximetry (%) Laboratory Tests 02/22/17 02/23/17 02/23/17 18:00 07:00 07:00 WBC 5.8 RBC 4.99 Hgb 14.9 Hct 43.4 MCV 87.0 MCH 29.8 MCHC 34.3 RDW 12.1 Plt Count 120 L MPV 7.1 L Sodium 141 Potassium 3.2 L Chloride 104 Carbon Dioxide 28 Anion Gap 9 BUN 9 Creatinine 0.7 Creat Clearance w eGFR > 60 Random Glucose 83 Calcium 7.8 L Total Bilirubin 1.0 AST 24 D ALT 21 Alkaline Phosphatase 81 Total Protein 6.7 Albumin 3.7 Urine Color Yellow Urine Appearance Clear Urine pH 6.0 Ur Specific [place] 1.017 Urine Protein 1+ H Urine Glucose (UA) Negative Urine Ketones Negative Urine Blood Negative Urine Nitrite Negative Urine Bilirubin Negative Urine Urobilinogen 4.0 e.u/dl Ur Leukocyte Esterase Negative Urine WBC (Auto) 2 Urine RBC (Auto) <1 Ur Epithelial Cells Rare Urine Bacteria Rare Hyaline Casts 1 Urine Mucus Rare RPR Titer 02/23/17 07:00 WBC RBC Hgb Hct MCV MCH MCHC RDW Plt Count MPV Sodium Potassium Chloride Carbon Dioxide Anion Gap BUN Creatinine Creat Clearance w eGFR Random Glucose Calcium Total Bilirubin AST ALT Alkaline Phosphatase Total Protein Albumin Urine Color Urine Appearance Urine pH Ur Specific [place] Urine Protein Urine Glucose (UA) Urine Ketones Urine Blood Urine Nitrite Urine Bilirubin Urine Urobilinogen Ur Leukocyte Esterase Urine WBC (Auto) Urine RBC (Auto) Ur Epithelial Cells Urine Bacteria Hyaline Casts Urine Mucus RPR Titer Nonreactive low potassium 3.2; k-dur 20meq x 4 days ordered aaox3 ambulating no acute distress Assessment: 02/23/17 11:52 withdrawal sx Plan: continue detox increase fluids monitor BP
--- NOTE | 2017-02-23 13:32 | EKG ---
Test Reason : Blood Pressure : / mmHG Vent. Rate : 096 BPM Atrial Rate : 096 BPM P-R Int : 128 ms QRS Dur : 092 ms QT Int : 350 ms P-R-T Axes : 068 061 056 degrees QTc Int : 442 ms NORMAL SINUS RHYTHM VOLTAGE CRITERIA FOR LEFT VENTRICULAR HYPERTROPHY ABNORMAL ECG WHEN COMPARED WITH ECG OF 20-NOV-2016 20:32, NO SIGNIFICANT CHANGE WAS FOUND Confirmed by PEDRITO KIRK MD ([id number]) on 02/23/2017 1:32:13 PM Referred By: Confirmed By:PEDRITO KIRK MD
[2017-02-23] MEDS: POTASSIUM CHLORIDE TABS 20 MEQ TABLET.ER (FP) PO SCH (13:48)
[2017-02-23] MEDS: QUEtiapine FUMARATE 100 MG TABLET (FP) PO SCH (22:34)
[2017-02-23] MEDS: THIAMINE HCL 100 MG TABLET (FP) PO SCH (22:34)
[2017-02-24] MEDS: chlordiazePOXIDE HCL 25 MG CAPSULE PO SCH ×3 (05:49→18:02)
[2017-02-24] MEDS: POTASSIUM CHLORIDE TABS 20 MEQ TABLET.ER (FP) PO SCH (10:30)
[2017-02-24] MEDS: PANTOPRAZOLE 20 MG TABLET (FP) PO SCH (10:30)
[2017-02-24] MEDS: PRENATAL VITAMINS W/ FOLIC ACID TABLET (FP) PO SCH (10:30)
[2017-02-24] MEDS: NICOTINE 14 MG/24 HOURS TOPICAL PATCH TD SCH (10:42)
--- NOTE | 2017-02-24 11:19 | PN ---
[facility] CIWA - CIWA Score Nausea/Vomitin-No Nausea/No Vomiting Muscle Tremors: 3 Anxiety: 3 Agitation: 3 Paroxysmal Sweats: 3 Orientation: 0-Oriented Tacttile Disturbances: 0-None Auditory Disturbances: 0-None Visual Disturbances: 0-None Headache: 0-None Present CIWA-Ar Total Score: 12 S Progress Note (SOAP) Subjective: sweats shakes interrupted sleep Objective: 02/24/17 11:17 Vital Signs Temperature 97.3 F L 02/24/17 09:26 Pulse Rate 85 02/24/17 09:26 Respiratory Rate 18 02/24/17 09:26 Blood Pressure 110/71 02/24/17 09:26 O2 Sat by Pulse Oximetry (%) Laboratory Tests 02/22/17 02/23/17 02/23/17 18:00 07:00 07:00 WBC 5.8 RBC 4.99 Hgb 14.9 Hct 43.4 MCV 87.0 MCH 29.8 MCHC 34.3 RDW 12.1 Plt Count 120 L MPV 7.1 L Sodium 141 Potassium 3.2 L Chloride 104 Carbon Dioxide 28 Anion Gap 9 BUN 9 Creatinine 0.7 Creat Clearance w eGFR > 60 Random Glucose 83 Calcium 7.8 L Total Bilirubin 1.0 AST 24 D ALT 21 Alkaline Phosphatase 81 Total Protein 6.7 Albumin 3.7 Urine Color Yellow Urine Appearance Clear Urine pH 6.0 Ur Specific [place] 1.017 Urine Protein 1+ H Urine Glucose (UA) Negative Urine Ketones Negative Urine Blood Negative Urine Nitrite Negative Urine Bilirubin Negative Urine Urobilinogen 4.0 e.u/dl Ur Leukocyte Esterase Negative Urine WBC (Auto) 2 Urine RBC (Auto) <1 Ur Epithelial Cells Rare Urine Bacteria Rare Hyaline Casts 1 Urine Mucus Rare RPR Titer 02/23/17 07:00 WBC RBC Hgb Hct MCV MCH MCHC RDW Plt Count MPV Sodium Potassium Chloride Carbon Dioxide Anion Gap BUN Creatinine Creat Clearance w eGFR Random Glucose Calcium Total Bilirubin AST ALT Alkaline Phosphatase Total Protein Albumin Urine Color Urine Appearance Urine pH Ur Specific [place] Urine Protein Urine Glucose (UA) Urine Ketones Urine Blood Urine Nitrite Urine Bilirubin Urine Urobilinogen Ur Leukocyte Esterase Urine WBC (Auto) Urine RBC (Auto) Ur Epithelial Cells Urine Bacteria Hyaline Casts Urine Mucus RPR Titer Nonreactive aaox3 ambulating no acute distress Assessment: 02/24/17 11:21 withdrawal sx Plan: continue detox increase fluids
--- NOTE | 2017-02-24 17:16 | PN ---
Psychiatric Progress Note Vital Signs: Vital Signs Period Temp Pulse Resp BP Sys/Gray Pulse Ox Last 24 Hr 97.2 F-98.4 F 63-95 16-20 104-147/60-85 Date of Session: 02/24/17 Chief Complaint:: "I want antabuse." HPI: Consult was placed in patient's request. Pt inquiring for a prescription of antabuse. ROS: Alert and oriented X3. Pt. is ambulatory and visible on unit. Current Medications: Active Medications Generic Name Dose Route Start Last Admin Trade Name Freq PRN Reason Stop Dose Admin Acetaminophen 650 mg 02/22/17 20:32 Tylenol - PO Q4H PRN FEVER OR PAIN Al Hydroxide/Mg Hydroxide 30 ml 02/22/17 20:32 Mylanta Oral Suspension - PO Q6H PRN DYSPEPSIA Chlordiazepoxide HCl 15 mg 02/24/17 23:00 Librium - PO 02/25/17 17:01 [id number] SUSAN Chlordiazepoxide HCl 25 mg 02/22/17 20:32 02/23/17 13:48 Librium - PO 02/25/17 20:31 25 mg Q4H PRN Administration WITHDRAWAL(CONT SUBST) Chlordiazepoxide HCl 10 mg 02/25/17 23:00 Librium - PO 02/26/17 17:01 [id number] SUSAN Eucalyptus/Menthol/Phenol/Sorbitol 1 each 02/22/17 20:32 Cepastat Lozenge - MM Q4H PRN SORE THROAT Guaifenesin 10 ml 02/22/17 20:32 Robitussin Dm - PO Q6H PRN COUGH Hydroxyzine Pamoate 50 mg 02/22/17 20:32 Vistaril - PO Q4H PRN AGITATION Ibuprofen 400 mg 02/22/17 20:32 Motrin - PO Q6H PRN SEVERE PAIN Loperamide HCl 4 mg 02/22/17 20:32 Imodium - PO Q6H PRN DIARRHEA Magnesium Citrate 300 ml 02/22/17 20:32 Citroma - PO Q48H PRN CONSTIPATION Magnesium Hydroxide 30 ml 02/22/17 20:32 Milk Of Magnesia - PO DAILY PRN CONSTIPATION Nicotine 14 mg 02/23/17 10:00 02/24/17 10:42 Nicoderm Patch - TD Not Given DAILY SUSAN Nicotine Polacrilex 2 mg 02/22/17 20:32 Nicorette Gum - BUC Q2H PRN NICOTINE REPLACEMENT RX Ondansetron HCl 4 mg 02/22/17 20:36 Zofran Odt - SL Q6H PRN NAUSEA AND/OR VOMITING Pantoprazole Sodium 20 mg 02/22/17 20:45 02/24/17 10:30 Protonix - PO 20 mg DAILY SUSAN Administration Potassium Chloride 20 meq 02/23/17 12:52 02/24/17 10:30 K-Dur - PO 02/27/17 12:51 20 meq DAILY SUSAN Administration Multivit/Folic Acid/Iron 1 tab 02/23/17 10:00 02/24/17 10:30 Vitamins (Sjr) - PO 1 tab DAILY SUSAN Administration Pseudoephedrine/Triprolidine 1 combo 02/22/17 20:32 Actifed - PO TID PRN NASAL CONGESTION Quetiapine Fumarate 100 mg 02/23/17 22:00 02/23/17 22:34 Seroquel - PO 100 mg HS SUSAN Administration Thiamine HCl 100 mg 02/22/17 22:00 02/23/17 22:34 Vitamin B1 - PO 100 mg HS SUSAN Administration Medication(s) Change(s): No Current Side Effect: No Lab tests ordered: No Lab tests reviewed: No (Not necessary to review labs.) Provider note:: Chart reviewed. Case discussed with nursing staff. Patient was seen by psychiatric nurse practitioner. Patient requesting a prescription of anatabuse for discharge. Pt. recommended to follow up with outpatient provider on further discussion of antabuse prescription. No anatabuse to be provided in this session. Pt. is stable, and is expected to be discharged tomorrow morning. Total face to face time:: 25 Mental Status Exam - Mental Status Exam Alert and Oriented to: Time, Place, Person Cognitive Function: Fair Patient Appearance: Well Groomed Mood: Euthymic Affect: Mood Congruent Patient Behavior: Appropriate, Cooperative Speech Pattern: Clear Voice Loudness: Normal Hallucinations: Denies Suicidal Ideation: Denies Homicidal Ideation: Denies Insight/Judgement: Fair Sleep: Fair Appetite: Fair Muscle strength/Tone: Normal Gait/Station: Normal Psychiatric Treatment Plan - Problem List (1) Alcohol dependence with uncomplicated withdrawal (2) Substance induced mood disorder Comment: . (3) Bipolar disorder Qualifiers: Active/Remission status: in partial remission Most recent bipolar episode type: mixed Qualified Code(s): F31.77 - Bipolar disorder, in partial remission , most recent episode mixed Comment: Historical diagnosis.. (4) Drug-induced mood disorder Comment: . (5) Nicotine dependence Qualifiers: Nicotine product type: cigarettes Substance use status: uncomplicated Qualified Code(s): F17.210 - Nicotine dependence, cigarettes, uncomplicated Comment: .
[2017-02-24] MEDS: QUEtiapine FUMARATE 100 MG TABLET (FP) PO SCH (22:04)
[2017-02-24] MEDS: chlordiazePOXIDE 5 MG CAPSULE PO SCH (22:04)
[2017-02-24] MEDS: THIAMINE HCL 100 MG TABLET (FP) PO SCH (22:04)
[2017-02-25] MEDS: chlordiazePOXIDE 5 MG CAPSULE PO SCH (06:12)
[2017-02-25 06:17] VITALS: BP 101/55; PULSE 58; TEMP 97.5
[2017-02-25] MEDS ORDERED: LIDOCAINE 5% TOPICAL PATCH TP ONE (08:59)
--- NOTE | 2017-02-25 09:02 | DS ---
[facility] Detox Discharge Summary Admission Date: 02/22/17 - History Present History: Alcohol Dependence - Physical Exam Results Vital Signs: Vital Signs Temperature 97.5 F L 02/25/17 06:17 Pulse Rate 58 L 02/25/17 06:17 Respiratory Rate 16 02/25/17 06:17 Blood Pressure 101/55 02/25/17 06:17 O2 Sat by Pulse Oximetry (%) - Treatment Hospital Course: Detox Protocol Followed, Responded well, Discharged Condition Good - Medication Discharge Medications: Ambulatory Orders Quetiapine Fumarate [Seroquel] 100 tab PO HS #30 tablet 02/23/17 - Diagnosis (1) Alcohol intoxication Current Visit: No Status: Chronic Qualifiers: Complication of substance-induced condition: uncomplicated Qualified Code(s ): F10.920 - Alcohol use, unspecified with intoxication, uncomplicated (2) Insomnia Current Visit: No Status: Acute Qualifiers: Insomnia type: unspecified Qualified Code(s): G47.00 - Insomnia, unspecified (3) Other and unspecified alcohol dependence, episodic drinking behavior Current Visit: Yes Status: Chronic (4) Substance induced mood disorder Current Visit: No Status: Acute (5) Alcohol dependence with uncomplicated withdrawal Current Visit: No Status: Chronic (6) Alcohol-induced anxiety disorder Current Visit: No Status: Chronic (7) Anxiety Current Visit: No Status: Chronic (8) Bipolar disorder Current Visit: No Status: Chronic Qualifiers: Active/Remission status: in partial remission Most recent bipolar episode type: mixed Qualified Code(s): F31.77 - Bipolar disorder, in partial remission , most recent episode mixed (9) Drug-induced mood disorder Current Visit: No Status: Chronic (10) GERD (gastroesophageal reflux disease) Current Visit: No Status: Chronic Qualifiers: Esophagitis presence: without esophagitis Qualified Code(s): K21.9 - Gastro -esophageal reflux disease without esophagitis (11) History of gastric bypass Current Visit: No Status: Chronic (12) Nicotine dependence Current Visit: No Status: Chronic Qualifiers: Nicotine product type: cigarettes Substance use status: uncomplicated Qualified Code(s): F17.210 - Nicotine dependence, cigarettes, uncomplicated (13) Seasonal allergic reaction Current Visit: No Status: Chronic Qualifiers: Allergic rhinitis trigger: other Qualified Code(s): J30.89 - Other allergic rhinitis (14) Bipolar II disorder Current Visit: No Status: Suspected (15) OCD (obsessive compulsive disorder) Current Visit: No Status: Suspected - AMA Did Patient Leave Against Medical Advice: Yes
[2017-02-25] MEDS ORDERED: LIDOCAINE PATCH REMOVAL MC SCH (22:00)
[2017-02-25] MEDS ORDERED: chlordiazePOXIDE HCL 10 MG CAPSULE PO SCH (23:00)
[2017-02-26] MEDS ORDERED: LIDOCAINE 5% TOPICAL PATCH TP SCH (10:00)
== END 2017-02-25 08:58 | disposition left against medical advice (07) | DRG 770 ==
LOC: YASAS 17:08 → Y6N 20:31
PROVIDERS: ADMIT Internal Medicine; ATTEND Internal Medicine
PROC: HZ2ZZZZ Detoxification Services for Substance Abuse Treatment (ICD-10-PCS; principal; 2017-02-22)
DX: F10.230 Alcohol dependence with withdrawal, uncomplicated (principal); F17.210 Nicotine dependence, cigarettes, uncomplicated; F10.24 Alcohol dependence with alcohol-induced mood disorder; F31.77 Bipolar disorder, in partial remission, most recent episode mixed; F19.24 Other psychoactive substance dependence with psychoactive substance-induced mood disorder; G47.00 Insomnia, unspecified; K21.9 Gastro-esophageal reflux disease without esophagitis; J30.89 Other allergic rhinitis; Z98.84 Bariatric surgery status
CPT/HCPCS: 36415; 80053; 81003; 81015; 85027; 86593; 93005; 93010

== ENCOUNTER 2023-09-03 15:18 | Inpatient (IN) | payer OTHER ==
[2023-09-03 15:58] VITALS: BMI 23.3
[2023-09-03] MEDS ORDERED: ONDANSETRON *ODT* 4 MG TABLET SL PRN (17:11)
[2023-09-03] MEDS ORDERED: DICYCLOMINE HCL 10 MG CAPSULE PO PRN (17:11)
[2023-09-03] MEDS ORDERED: ACETAMINOPHEN 325 MG TABLET (FP) PO PRN (17:11)
[2023-09-03] MEDS ORDERED: NICOTINE POLACRILEX 2 MG GUM BUC PRN (17:11)
[2023-09-03] MEDS ORDERED: BISMUTH SUBSALICYLATE 524 MG/30 ML PO PRN (17:11)
[2023-09-03] MEDS ORDERED: MAGNESIUM HYDROX 2400MG/30ML ORAL SUSPENSION 30 ML CUP PO PRN (17:11)
[2023-09-03] MEDS ORDERED: IBUPROFEN 400 MG TABLET (FP) PO PRN (17:11)
[2023-09-03] MEDS ORDERED: IBUPROFEN 600 MG TABLET (FP) PO PRN (17:11)
[2023-09-03] MEDS ORDERED: MAG HYDROX/AL HYDROX/SIMETH 30 ML UNIT-DOSE CUP PO PRN (17:11)
[2023-09-03] MEDS ORDERED: NICOTINE POLACRILEX 2 MG LOZENGE BC PRN (17:11)
[2023-09-03] MEDS ORDERED: guaiFENesin 600 MG TABLET.ER (FP) PO PRN (17:11)
[2023-09-03] MEDS ORDERED: BENZONATATE 200 MG CAPSULE PO PRN (17:11)
[2023-09-03] MEDS ORDERED: LOPERAMIDE HCL 2 MG CAPSULE PO PRN (17:11)
[2023-09-03] MEDS ORDERED: POLYETHYLENE GLYCOL (HEALTHYLAX) 3350 17 GM PACKET PO PRN (17:11)
[2023-09-03] MEDS ORDERED: BENZOCAINE/MENTHOL (CHLORASEPTIC ) LOZENGE MM PRN (17:11)
[2023-09-03] MEDS ORDERED: NALOXONE (NARCAN) HCL 4 MG/0.1 ML SPRAY NS PRN (17:11)
[2023-09-03] MEDS ORDERED: NALOXONE HCL 0.4 MG/ML VIAL IM PRN (17:11)
[2023-09-03] MEDS ORDERED: LORazepam 2 MG TABLET ONE (17:55)
[2023-09-03] MEDS: LORazepam 1 MG TABLET PO ONE (18:34)
[2023-09-03] MEDS: METHOCARBAMOL 500 MG TABLET PO PRN (22:05)
[2023-09-03] MEDS: MELATONIN 5 MG TABLETS PO SCH (22:05)
[2023-09-03] MEDS: THIAMINE 100 MG TABLET PO SCH (22:05)
[2023-09-03] MEDS: levETIRAcetam 500 MG TABLET (FP) PO SCH (22:06)
[2023-09-03] MEDS: hydrOXYzine PAMOATE 25 MG CAPSULE (FP) PO PRN (22:07)
[2023-09-03] MEDS: chlordiazePOXIDE HCL 25 MG CAPSULE PO SCH (22:07)
[2023-09-04] MEDS: PRENATAL VITAMINS W/ FOLIC ACID TABLET (FP) PO SCH (10:19)
[2023-09-04 11:47] LABS: HEMATOCRIT 34.4 % (35.4-49); HEMOGLOBIN 11.1 GM/dL (11.7-16.9); MCH 25.7 pg (25.7-33.7); MCHC 32.3 g/dl (32.0-35.9); MEAN CELL VOLUME 79.7 fl (80-96); MEAN PLT VOLUME 7.5 fl (7.5-11.1); PLATELET COUNT 189 10^3/uL (134-434); RBC 4.32 M/mm3 (4.00-5.60); RDW 20.4 % (11.9-15.9); WHITE BLOOD COUNT 4.1 K/mm3 (4.0-10.0)
[2023-09-04 11:53] LABS: CHLORIDE 108 mmol/L (98-107); POTASSIUM 3.4 mmol/L (3.5-5.1); SODIUM 143 mmol/L (136-145)
[2023-09-04 12:01] LABS: ALBUMIN 3.2 g/dl (3.4-5.0); ANION GAP 7 mmol/L (4-13); BLOOD UREA NITROGEN 8.5 mg/dL (7-18); CO2 28 mmol/L (21-32); GLUCOSE,RANDOM 110 mg/dL (74-106); SGOT/AST 29 U/L (15-37); SGPT/ALT 21 U/L (13-61)
[2023-09-04 12:02] LABS: BILIRUBIN,TOTAL 0.5 mg/dL (0.2-1); TOT PROT 5.9 g/dl (6.4-8.2)
[2023-09-04 12:03] LABS: CALCIUM 8.7 mg/dL (8.5-10.1)
[2023-09-04 12:04] LABS: ALK PHOS 69 U/L (45-117); CREATININE 0.8 mg/dL (0.55-1.3)
[2023-09-04] MEDS: POTASSIUM CHLORIDE ORAL LIQUID 20 MEQ/15 ML PO ONE (13:44)
[2023-09-04] MEDS: chlordiazePOXIDE HCL 25 MG CAPSULE PO PRN (13:44)
[2023-09-04] MEDS: QUEtiapine FUMARATE 100 MG TABLET (FP) PO SCH (22:26)
[2023-09-04] MEDS: propRANOLol HCL 10 MG TABLET PO ONE (22:26)
[2023-09-05] MEDS: chlordiazePOXIDE HCL 25 MG CAPSULE PO SCH (05:12)
[2023-09-05] MEDS: QUEtiapine FUMARATE 200 MG TABLET PO SCH (22:46)
[2023-09-06] MEDS ORDERED: chlordiazePOXIDE HCL 10 MG CAPSULE PO PRN
[2023-09-06] MEDS: chlordiazePOXIDE HCL 10 MG CAPSULE PO SCH (05:59)
[2023-09-06] MEDS: P-EPHED 60MG/TRIPROLIDI 2.5MG TABLET PO PRN (10:58)
[2023-09-06 12:09] LABS: POTASSIUM 3.8 mmol/L (3.5-5.1)
[2023-09-06 12:11] LABS: CALCIUM 8.5 mg/dL (8.5-10.1)
[2023-09-06 12:12] LABS: BLOOD UREA NITROGEN 6.6 mg/dL (7-18)
[2023-09-06 12:15] LABS: CREATININE 0.8 mg/dL (0.55-1.3)
[2023-09-06] MEDS: METHOCARBAMOL 500 MG TABLET PO PRN (17:17)
[2023-09-07] MEDS: chlordiazePOXIDE HCL 10 MG CAPSULE PO SCH (05:53)
[2023-09-07 13:23] VITALS: RESP 18
[2023-09-08] MEDS: chlordiazePOXIDE HCL 10 MG CAPSULE PO ONE (05:40)
[2023-09-08 05:46] VITALS: BP 101/60; PULSE 60; TEMP 97.9
== END 2023-09-08 11:10 | disposition other institution (70) | DRG 775 ==
LOC: YASAS 15:18 → Y3N 17:29
PROVIDERS: ADMIT Allergy & Immunology; ATTEND Surgery
PROC: HZ2ZZZZ Detoxification Services for Substance Abuse Treatment (ICD-10-PCS; principal; 2023-09-03)
DX: F10.230 Alcohol dependence with withdrawal, uncomplicated (principal); F12.10 Cannabis abuse, uncomplicated; F17.210 Nicotine dependence, cigarettes, uncomplicated; F17.290 Nicotine dependence, other tobacco product, uncomplicated; F19.282 Other psychoactive substance dependence with psychoactive substance-induced sleep disorder; F19.24 Other psychoactive substance dependence with psychoactive substance-induced mood disorder; F31.77 Bipolar disorder, in partial remission, most recent episode mixed; E87.6 Hypokalemia; I10 Essential (primary) hypertension; K21.9 Gastro-esophageal reflux disease without esophagitis; Z98.84 Bariatric surgery status; Z59.02 Unsheltered homelessness
CPT/HCPCS: 36415; 80048; 80053; 80305; 80307; 85027; 86780; 93005; 93010

== ENCOUNTER 2024-06-09 21:39 | Inpatient (IN) | payer OTHER ==
[2024-06-09 21:58] VITALS: BMI 27.6
[2024-06-09] MEDS ORDERED: BENZONATATE 200 MG CAPSULE PO PRN (22:33)
[2024-06-09] MEDS ORDERED: MAGNESIUM HYDROX 2400MG/30ML ORAL SUSPENSION 30 ML CUP PO PRN (22:33)
[2024-06-09] MEDS ORDERED: ONDANSETRON *ODT* 4 MG TABLET SL PRN (22:33)
[2024-06-09] MEDS ORDERED: MAG HYDROX/AL HYDROX/SIMETH 30 ML UNIT-DOSE CUP PO PRN (22:33)
[2024-06-09] MEDS ORDERED: DICYCLOMINE HCL 10 MG CAPSULE PO PRN (22:33)
[2024-06-09] MEDS ORDERED: POLYETHYLENE GLYCOL (HEALTHYLAX) 3350 17 GM PACKET PO PRN (22:33)
[2024-06-09] MEDS ORDERED: LOPERAMIDE HCL 2 MG CAPSULE PO PRN (22:33)
[2024-06-09] MEDS ORDERED: NALOXONE (NARCAN) HCL 4 MG/0.1 ML SPRAY NS PRN (22:33)
[2024-06-09] MEDS ORDERED: ACETAMINOPHEN 325 MG TABLET (FP) PO PRN (22:33)
[2024-06-09] MEDS ORDERED: IBUPROFEN 600 MG TABLET (FP) PO PRN (22:33)
[2024-06-09] MEDS ORDERED: BENZOCAINE/MENTHOL (CHLORASEPTIC ) LOZENGE MM PRN (22:33)
[2024-06-09] MEDS ORDERED: guaiFENesin 600 MG TABLET.ER (FP) PO PRN (22:33)
[2024-06-09] MEDS ORDERED: IBUPROFEN 400 MG TABLET (FP) PO PRN (22:33)
[2024-06-09] MEDS ORDERED: BISMUTH SUBSALICYLATE 524 MG/30 ML PO PRN (22:33)
[2024-06-09] MEDS ORDERED: chlordiazePOXIDE HCL 25 MG CAPSULE ONE (23:30)
[2024-06-09] MEDS ORDERED: cloNIDine HCL 0.1 MG TABLET ONE (23:30)
[2024-06-09] MEDS: cloNIDine HCL 0.1 MG TABLET PO ONE (23:35)
[2024-06-09] MEDS: chlordiazePOXIDE HCL 25 MG CAPSULE PO SCH (23:35)
[2024-06-09] MEDS: hydrOXYzine PAMOATE 25 MG CAPSULE (FP) PO PRN (23:58)
[2024-06-09] MEDS: METHOCARBAMOL 500 MG TABLET PO PRN (23:58)
[2024-06-10] MEDS: PRENATAL VITAMINS W/ FOLIC ACID TABLET (FP) PO SCH (11:17)
[2024-06-10] MEDS: NICOTINE 21 MG/24 HOURS TOPICAL PATCH TD SCH (11:17)
[2024-06-10 12:40] LABS: HEMATOCRIT 38.1 % (40.1-51.0); HEMOGLOBIN 11.4 g/dL (13.7-17.5); MCHC 29.9 g/dl (32.3-36.5); MEAN CELL VOLUME 87.4 fl (79.0-92.2); PLATELET COUNT # 122 x10^3/uL (163-337); RDW 16.8 % (12.0-15.6)
[2024-06-10 12:51] LABS: CHLORIDE 108 mmol/L (98-107); POTASSIUM 3.3 mmol/L (3.5-5.1); SODIUM 142 mmol/L (136-145)
[2024-06-10 12:58] LABS: ALBUMIN 3.3 g/dl (3.4-5.0)
[2024-06-10 13:00] LABS: BLOOD UREA NITROGEN 10.4 mg/dL (7-18); GLUCOSE,RANDOM 86 mg/dL (74-106)
[2024-06-10 13:01] LABS: CALCIUM 8.3 mg/dL (8.5-10.1); CREATININE 0.7 mg/dL (0.55-1.3); SGOT/AST 44 U/L (15-37); SGPT/ALT 34 U/L (13-61)
[2024-06-10 13:02] LABS: ANION GAP 9 mmol/L (4-13); BILIRUBIN,TOTAL 0.7 mg/dL (0.2-1); CO2 26 mmol/L (21-32)
[2024-06-10 13:04] LABS: ALK PHOS 79 U/L (45-117)
[2024-06-10] MEDS: levETIRAcetam 500 MG TABLET (FP) PO SCH (13:29)
[2024-06-10] MEDS: POTASSIUM CHLORIDE ORAL LIQUID 20 MEQ/15 ML PO ONE (14:06)
[2024-06-10] MEDS: chlordiazePOXIDE HCL 25 MG CAPSULE PO PRN (14:10)
[2024-06-10] MEDS: MELATONIN 5 MG TABLETS PO SCH (22:15)
[2024-06-10] MEDS: THIAMINE 100 MG TABLET PO SCH (22:15)
[2024-06-10] MEDS: QUEtiapine FUMARATE 100 MG TABLET (FP) PO SCH (22:15)
[2024-06-11] MEDS: chlordiazePOXIDE HCL 25 MG CAPSULE PO SCH (05:35)
[2024-06-11] MEDS: NICOTINE POLACRILEX 4 MG GUM BUC PRN (10:07)
[2024-06-12] MEDS ORDERED: chlordiazePOXIDE HCL 10 MG CAPSULE PO PRN
[2024-06-12] MEDS: chlordiazePOXIDE HCL 10 MG CAPSULE PO SCH (05:48)
[2024-06-12] MEDS ORDERED: CALCIUM CARBONATE 650 MG TABLET PO SCH (12:00)
[2024-06-12] MEDS: CALCIUM CARBONATE 650 MG TABLET PO SCH (15:40)
[2024-06-13] MEDS ORDERED: chlordiazePOXIDE HCL 10 MG CAPSULE PO SCH (05:00)
[2024-06-13] MEDS: chlordiazePOXIDE HCL 10 MG CAPSULE PO ONE (06:00)
[2024-06-13 09:04] VITALS: BP 134/88; PULSE 82; RESP 16; TEMP 98.1
[2024-06-14] MEDS ORDERED: chlordiazePOXIDE HCL 10 MG CAPSULE PO ONE (05:00)
== END 2024-06-13 10:52 | disposition home or self-care (01) | DRG 775 ==
LOC: YASAS 21:39 → Y6N 23:12
PROVIDERS: ADMIT Allergy & Immunology; ATTEND Allergy & Immunology
PROC: HZ2ZZZZ Detoxification Services for Substance Abuse Treatment (ICD-10-PCS; principal; 2024-06-09)
DX: F10.230 Alcohol dependence with withdrawal, uncomplicated (principal); F12.20 Cannabis dependence, uncomplicated; F17.290 Nicotine dependence, other tobacco product, uncomplicated; F19.282 Other psychoactive substance dependence with psychoactive substance-induced sleep disorder; F19.280 Other psychoactive substance dependence with psychoactive substance-induced anxiety disorder; F19.24 Other psychoactive substance dependence with psychoactive substance-induced mood disorder; F31.77 Bipolar disorder, in partial remission, most recent episode mixed; E87.6 Hypokalemia; E83.51 Hypocalcemia; D64.9 Anemia, unspecified; K21.9 Gastro-esophageal reflux disease without esophagitis; R74.01 Elevation of levels of liver transaminase levels; Z62.810 Personal history of physical and sexual abuse in childhood; Z63.8 Other specified problems related to primary support group; Z59.00 Homelessness unspecified
CPT/HCPCS: 36415; 80053; 80305; 80307; 85027; 86780; 93005; 93010

== ENCOUNTER 2024-07-13 15:06 | Inpatient (IN) | payer OTHER ==
[2024-07-13] MEDS ORDERED: ACETAMINOPHEN 325 MG TABLET (FP) PO PRN (16:26)
[2024-07-13] MEDS ORDERED: NALOXONE (NARCAN) HCL 4 MG/0.1 ML SPRAY NS PRN (16:26)
[2024-07-13] MEDS ORDERED: POLYETHYLENE GLYCOL (HEALTHYLAX) 3350 17 GM PACKET PO PRN (16:26)
[2024-07-13] MEDS ORDERED: BISMUTH SUBSALICYLATE 524 MG/30 ML PO PRN (16:26)
[2024-07-13] MEDS ORDERED: guaiFENesin 600 MG TABLET.ER (FP) PO PRN (16:26)
[2024-07-13] MEDS ORDERED: LOPERAMIDE HCL 2 MG CAPSULE PO PRN (16:26)
[2024-07-13] MEDS ORDERED: MAGNESIUM HYDROX 2400MG/30ML ORAL SUSPENSION 30 ML CUP PO PRN (16:26)
[2024-07-13] MEDS ORDERED: MAG HYDROX/AL HYDROX/SIMETH 30 ML UNIT-DOSE CUP PO PRN (16:26)
[2024-07-13] MEDS ORDERED: IBUPROFEN 600 MG TABLET (FP) PO PRN (16:26)
[2024-07-13] MEDS ORDERED: BENZONATATE 200 MG CAPSULE PO PRN (16:26)
[2024-07-13] MEDS ORDERED: DICYCLOMINE HCL 10 MG CAPSULE PO PRN (16:26)
[2024-07-13] MEDS ORDERED: BENZOCAINE/MENTHOL (CHLORASEPTIC ) LOZENGE MM PRN (16:26)
[2024-07-13] MEDS ORDERED: IBUPROFEN 400 MG TABLET (FP) PO PRN (16:26)
[2024-07-13] MEDS ORDERED: ONDANSETRON *ODT* 4 MG TABLET SL PRN (16:26)
[2024-07-13 16:31] VITALS: BMI 26.0
[2024-07-13] MEDS ORDERED: LORazepam 2 MG/ML SDV VIAL ONE (16:46)
[2024-07-13] MEDS ORDERED: propRANOLol HCL 10 MG TABLET ONE (16:46)
[2024-07-13] MEDS: LORazepam 2 MG/ML SDV VIAL IM ONE (16:58)
[2024-07-13] MEDS: NALTREXONE HCL 50 MG TABLET PO ONE (18:04)
[2024-07-13] MEDS: levETIRAcetam 500 MG TABLET (FP) PO SCH (22:06)
[2024-07-13] MEDS: propRANOLol HCL 10 MG TABLET PO SCH (22:06)
[2024-07-13] MEDS: ACAMPROSATE CALCIUM 333 MG TABLET.DR PO SCH (22:06)
[2024-07-13] MEDS: QUEtiapine FUMARATE 100 MG TABLET (FP) PO PRN (22:06)
[2024-07-13] MEDS: THIAMINE 100 MG TABLET PO SCH (22:07)
[2024-07-13] MEDS: MELATONIN 5 MG TABLETS PO SCH (22:07)
[2024-07-13] MEDS: LORazepam 2 MG TABLET PO SCH (22:08)
[2024-07-14] MEDS: NALTREXONE HCL 50 MG TABLET PO SCH (10:13)
[2024-07-14] MEDS: PRENATAL VITAMINS W/ FOLIC ACID TABLET (FP) PO SCH (10:15)
[2024-07-14 11:09] LABS: HEMATOCRIT 37.2 % (40.1-51.0); HEMOGLOBIN 11.8 g/dL (13.7-17.5); MCHC 31.7 g/dl (32.3-36.5); MEAN CELL VOLUME 85.1 fl (79.0-92.2); MEAN PLT VOLUME 9.5 fl (9.4-12.4); PLATELET COUNT 99 x10^3/uL (163-337); RDW 15.2 % (12.0-15.6)
[2024-07-14 11:17] LABS: CHLORIDE 106 mmol/L (98-107); POTASSIUM 3.2 mmol/L (3.5-5.1); SODIUM 142 mmol/L (136-145)
[2024-07-14 11:31] LABS: CALCIUM 8.9 mg/dL (8.5-10.1)
[2024-07-14 11:33] LABS: ANION GAP 6 mmol/L (4-13); BLOOD UREA NITROGEN 7.5 mg/dL (7-18); CO2 30 mmol/L (21-32); GLUCOSE,RANDOM 110 mg/dL (74-106)
[2024-07-14 11:35] LABS: CREATININE 0.6 mg/dL (0.55-1.3); SGOT/AST 92 U/L (15-37); SGPT/ALT 43 U/L (13-61)
[2024-07-14 11:37] LABS: TOT PROT 5.4 g/dl (6.4-8.2)
[2024-07-14 11:38] LABS: ALK PHOS 79 U/L (45-117)
[2024-07-14 11:39] LABS: BILIRUBIN,TOTAL 0.9 mg/dL (0.2-1)
[2024-07-14] MEDS: LORazepam 1 MG TABLET PO PRN (13:41)
[2024-07-14] MEDS: POTASSIUM CHLORIDE ORAL LIQUID 20 MEQ/15 ML PO ONE (22:09)
[2024-07-14] MEDS: METOPROLOL TARTRATE 25 MG TABLET (FP) PO ONE (22:10)
[2024-07-14] MEDS: hydrOXYzine PAMOATE 25 MG CAPSULE (FP) PO PRN (22:11)
[2024-07-14] MEDS: METHOCARBAMOL 500 MG TABLET PO PRN (22:59)
[2024-07-15] MEDS: LORazepam 1 MG TABLET PO SCH (05:19)
[2024-07-15 13:02] VITALS: BP 126/79; PULSE 90; RESP 18; TEMP 98
[2024-07-15] MEDS: FERROUS SO4 325 MG TABLET (FP) PO SCH (14:55)
[2024-07-16] MEDS ORDERED: LORazepam 0.5 MG TABLET PO PRN
[2024-07-16] MEDS ORDERED: LORazepam 0.5 MG TABLET PO SCH (05:00)
[2024-07-17] MEDS ORDERED: LORazepam 0.5 MG TABLET PO ONE (05:00)
== END 2024-07-15 15:43 | disposition left against medical advice (07) | DRG 770 ==
LOC: YASAS 15:06 → Y3N 17:05
PROVIDERS: ADMIT Allergy & Immunology; ATTEND Allergy & Immunology
PROC: HZ2ZZZZ Detoxification Services for Substance Abuse Treatment (ICD-10-PCS; principal; 2024-07-13)
DX: F10.230 Alcohol dependence with withdrawal, uncomplicated (principal); F17.290 Nicotine dependence, other tobacco product, uncomplicated; F19.280 Other psychoactive substance dependence with psychoactive substance-induced anxiety disorder; F19.24 Other psychoactive substance dependence with psychoactive substance-induced mood disorder; F32.9 Major depressive disorder, single episode, unspecified; F41.0 Panic disorder [episodic paroxysmal anxiety]; D64.9 Anemia, unspecified; E87.6 Hypokalemia; G47.00 Insomnia, unspecified; I10 Essential (primary) hypertension; Z62.810 Personal history of physical and sexual abuse in childhood; Z63.8 Other specified problems related to primary support group
CPT/HCPCS: 36415; 80053; 80305; 80307; 84132; 85027; 86780; 93005; 93010

== ENCOUNTER 2024-12-04 08:55 | Inpatient (IN) | payer OTHER ==
[2024-12-03 23:45] VITALS: BMI 25.4
[~2024-12-04 08:55] MED LIST: ACETAMINOPHEN 325 MG TABLET (FP) PO PRN; BENZOCAINE/MENTHOL (CHLORASEPTIC ) LOZENGE MM PRN; BENZONATATE 200 MG CAPSULE PO PRN; BISMUTH SUBSALICYLATE 524 MG/30 ML PO PRN; DICYCLOMINE HCL 10 MG CAPSULE PO PRN; IBUPROFEN 400 MG TABLET (FP) PO PRN; IBUPROFEN 600 MG TABLET (FP) PO PRN; LOPERAMIDE HCL 2 MG CAPSULE PO PRN; MAG HYDROX/AL HYDROX/SIMETH 30 ML UNIT-DOSE CUP PO PRN; MAGNESIUM HYDROX 2400MG/30ML ORAL SUSPENSION 30 ML CUP PO PRN; NALOXONE (NARCAN) HCL 4 MG/0.1 ML SPRAY NS PRN; NICOTINE POLACRILEX 4 MG GUM BUC PRN; ONDANSETRON *ODT* 4 MG TABLET SL PRN; POLYETHYLENE GLYCOL (HEALTHYLAX) 3350 17 GM PACKET PO PRN; guaiFENesin 600 MG TABLET.ER (FP) PO PRN
[2024-12-04] MEDS: levETIRAcetam 500 MG TABLET (FP) PO SCH (10:24)
[2024-12-04] MEDS: PRENATAL VITAMINS W/ FOLIC ACID TABLET (FP) PO SCH (10:24)
[2024-12-04] MEDS: NICOTINE 14 MG/24 HOURS TOPICAL PATCH TD SCH (10:24)
[2024-12-04 11:05] LABS: MCHC 30.1 g/dl (32.3-36.5); MEAN CELL VOLUME 87.5 fl (79.0-92.2); MEAN PLT VOLUME 9.8 fl (9.4-12.4); RDW 14.6 % (12.0-15.6)
[2024-12-04 11:20] LABS: GLUCOSE,RANDOM 75 mg/dL (74-106); TOT PROT 6.2 g/dl (6.4-8.2)
[2024-12-04 11:21] LABS: CO2 21 mmol/L (21-32)
[2024-12-04 11:23] LABS: ALK PHOS 80 U/L (40-150)
[2024-12-04 11:25] LABS: SGPT/ALT 20 U/L (0-55)
[2024-12-04 11:26] LABS: CREATININE 0.69 mg/dL (0.55-1.3); SGOT/AST 47 U/L (5-34)
[2024-12-04] MEDS: MELATONIN 5 MG TABLETS PO SCH (22:21)
[2024-12-04] MEDS: METHOCARBAMOL 500 MG TABLET PO PRN (22:21)
[2024-12-04] MEDS: THIAMINE 100 MG TABLET PO SCH (22:21)
[2024-12-04] MEDS: hydrOXYzine PAMOATE 25 MG CAPSULE (FP) PO PRN (22:21)
[2024-12-05] MEDS: QUEtiapine FUMARATE 100 MG TABLET (FP) PO SCH (22:05)
[2024-12-06] MEDS: NALTREXONE HCL 50 MG TABLET PO SCH (10:24)
[2024-12-06] MEDS: SERTRALINE HCL 50 MG TABLET (FP) PO SCH (10:24)
[2024-12-07 21:56] VITALS: TEMP 97.7
[2024-12-08 05:57] VITALS: BP 104/64; PULSE 66; RESP 16
== END 2024-12-08 07:55 | disposition home or self-care (01) | DRG 775 ==
LOC: YASAS 08:55 → Y3N 11:19
PROVIDERS: ADMIT Neuromusculoskeletal Medicine & OMM; ATTEND Allergy & Immunology
PROC: HZ2ZZZZ Detoxification Services for Substance Abuse Treatment (ICD-10-PCS; principal; 2024-12-04)
DX: F10.230 Alcohol dependence with withdrawal, uncomplicated (principal); F12.20 Cannabis dependence, uncomplicated; F17.290 Nicotine dependence, other tobacco product, uncomplicated; F31.9 Bipolar disorder, unspecified; F43.10 Post-traumatic stress disorder, unspecified; F41.0 Panic disorder [episodic paroxysmal anxiety]; G47.00 Insomnia, unspecified; G40.909 Epilepsy, unspecified, not intractable, without status epilepticus; K21.9 Gastro-esophageal reflux disease without esophagitis; Z62.810 Personal history of physical and sexual abuse in childhood; Z63.8 Other specified problems related to primary support group
CPT/HCPCS: 36415; 80053; 80305; 80307; 85027; 86780; 93005; 93010